=== PATIENT | female | born 1990 | race African-American/Black ===

== ENCOUNTER 2019-04-26 18:09 | Emergency (ER) | payer OTHER ==
[~2019-04-26] VITALS: Ht 162.6 cm; Wt 60.8 kg
[~2019-04-26 18:09] MED LIST: CYCL10TA2 PO; NAPR-514 PO
[2019-04-26 18:13] VITALS: BP 116/69
[2019-04-26] MEDS ORDERED: KETOROLAC 30 MG/ML VIAL. IM STA (18:27)
[2019-04-26] MEDS ORDERED: AMOX1TAB61 PO (18:37)
--- NOTE | 2019-04-26 18:38 | PHYS DOC ---
Past Medical History Past Medical History: Hypertension, Hyperthyroid, Other Additional Past Medical Histor: Brain aneurysm (LAURA MENCHACA APRN) Past Surgical History: , Other Additional Past Surgical Histo: ear tubes as a child (LAURA MENCHACA APRN) Alcohol Use: None Drug Use: None (LAURA MENCHACA APRN) Adult General Chief Complaint Chief Complaint: DENTAL PROBLEM HPI HPI Patient is a 28 year old presents with dental pain has been ongoing since Friday night. The patient states that the pain is been getting worse and she's been having swelling in the left bottom side of her mouth. The patient rates her pain as 9 out of 10 in severity and sharp. States she took ibuprofen around 3:00 PM that did not help. (LAURA MENCHACA APRN) Review of Systems Review of Systems Constitutional: Denies fever or chills [] Eyes: Denies change in visual acuity, redness, or eye pain [] HENT: Reports dental pain. Respiratory: Denies cough or shortness of breath [] Cardiovascular: No additional information not addressed in HPI [] GI: Denies abdominal pain, nausea, vomiting, bloody stools or diarrhea [] : Denies dysuria or hematuria [] Musculoskeletal: Denies back pain or joint pain [] Integument: Denies rash or skin lesions [] Neurologic: Denies headache, focal weakness or sensory changes [] Endocrine: Denies polyuria or polydipsia [] Complete systems were reviewed and found to be within normal limits, except as documented in this note. (LAURA MENCHACA APRN) Current Medications Current Medications Current Medications Medications (Trade) Dose Ordered Sig/Mel Start Time Stop Time Status Last Admin Dose Admin Ketorolac Tromethamine (Toradol 30mg Vial) 30 mg 1X STAT 04/26/19 18:27 04/26/19 18:30 DC 04/26/19 18:53 30 MG Lidocaine HCl (Viscous Lidocaine) 15 ml 1X ONCE 04/26/19 18:45 04/26/19 18:46 DC 04/26/19 18:53 15 ML (LAURA LARRY DO) Allergies Allergies Allergies Coded Allergies Type Severity Reaction Last Updated Verified No Known Drug Allergies 02/07/14 No (LAURA LARRY DO) Physical Exam Physical Exam Constitutional: Well developed, well nourished, no acute distress, non-toxic appearance. [] HENT: Normocephalic, atraumatic, bilateral external ears normal, oropharynx moist, no oral exudates, nose normal.Dental abscess by tooth 17 and 18. Eyes: PERRLA, EOMI, conjunctiva normal, no discharge. [] Neck: Normal range of motion, no tenderness, supple, no stridor. [] Cardiovascular:Heart rate regular rhythm, no murmur [] Lungs & Thorax: Bilateral breath sounds clear to auscultation [] Abdomen: Bowel sounds normal, soft, no tenderness, no masses, no pulsatile masses. [] Skin: Warm, dry, no erythema, no rash. [] Back: No tenderness, no CVA tenderness. [] Extremities: No tenderness, no cyanosis, no clubbing, ROM intact, no edema. [] Neurologic: Alert and oriented X 3, normal motor function, normal sensory function, no focal deficits noted. [] Psychologic: Affect normal, judgement normal, mood normal. [] (LAURA MENCHACA APRN) Current Patient Data Vital Signs Vital Signs Date Time Temp Pulse Resp B/P (MAP) Pulse Ox O2 Delivery O2 Flow Rate FiO2 04/26/19 18:13 99.1 81 18 116/69 (85) 100 99.1 (LAURA LARRY DO) EKG EKG [] (LAURA MENCHACA APRN) Radiology/Procedures Radiology/Procedures [] (LAURA MENCHACA APRN) Course & Med Decision Making Course & Med Decision Making Pertinent Labs and Imaging studies reviewed. (See chart for details) Will give dental balls, and Toradol. Will send home on Augmentin and have follow up with Dentist. (LAURA MENCHACA APRN) Dragon Disclaimer Dragon Disclaimer This electronic medical record was generated, in whole or in part, using a voice recognition dictation system. (LAURA MENCHACA APRN) Departure Departure Impression: Primary Impression: Dental abscess Disposition: 01 HOME, SELF-CARE Condition: STABLE Referrals: LAURA JENKINS MD (PCP) Patient Instructions: Carbamide Peroxide dental solution, Dental Abscess Additional Instructions: Thank you for visiting [facility]. We appreciate you trusting us with your care. If any additional problems come up don't hesitate to return to visit us. Please follow up with your primary care provider so they can plan additional care if needed and know about the problem that you had. If symptoms worsen come back to the Emergency Department. Any concerning symptoms that start such as chest pain, shortness of air, weakness or numbness on one side of the body, running high fevers or any other concerning symptoms return to the ER. You have been prescribed an antibiotic today to help fight your infection. Please take all of the antibiotic as directed. If after 48 hours the infection is not improving, please return for more care. If the infection worsens, return to ER for additional care. Please follow up with a dentist as soon as possible. Scripts Amoxicillin/Potassium Clav (AUGMENTIN 875-125 TABLET) 1 Each Tablet 1 TAB PO BID for 7 Days, #14 TAB Prov: LAURA MENCHACA APRN 04/26/19 Attending Signature Attending Signature I have reviewed the PA/HOT TAR ROOFER's note and plan of care. I was available for consultation as needed during the patient's visit in the emergency department. I agree with the clinical impression, plan, and disposition. (LAURA LARRY DO) LAURA MENCHACA APRN Apr 26, 2019 18:38 LAURA LARRY DO Apr 27, 2019 04:05
[2019-04-26] MEDS ORDERED: LIDOCAINE 2% VISCOUS 15 ML SOLUTION. SWSW ONE (18:45)
== END 2019-04-26 19:06 | disposition home or self-care (01) ==
LOC: ER 18:09
DX: K04.7 Periapical abscess without sinus (principal); I10 Essential (primary) hypertension
CPT/HCPCS: 96372; 99283; J1885